=== PATIENT | female | born 1985 | race Caucasian/White ===

== ENCOUNTER 2018-06-10 19:35 | Emergency (ER) | payer OTHER, MEDICAID ==
[2018-06-10] MEDS: DIPHENHYDRAMINE 50 MG INJ IM (21:50)
[2018-06-10] MEDS: FAMOTIDINE 20 MG TAB PO (21:50)
[2018-06-10] MEDS: predniSONE 20 MG TAB PO (21:50)
[2018-06-10] MEDS: MUPIROCIN 2% 22 GM OINT TOP (22:00)
== END 2018-06-10 22:25 | disposition home or self-care (01) ==
LOC: FTE 22:25
DX: L01.00 Impetigo, unspecified (principal)
CPT/HCPCS: 96372; 99284-25